=== PATIENT | female | born 1925 ===

== ENCOUNTER → 2016-06-02 | Outpatient (CLI) | payer OTHER, MEDICAID | LOC: BHFA 08:30 | PROVIDERS: ATTEND Internal Medicine Cardiovascular Disease | DX: R00.2 Palpitations (principal) ==

== ENCOUNTER 2016-09-07 15:55 | Observation (INO) | payer OTHER, MEDICAID ==
--- NOTE | 2016-09-07 16:28 | EDPHY ---
H & P Time Seen by Provider: 09/07/16 16:13 HPI/ROS: CHIEF COMPLAINT: Head injury, scalp laceration, right ankle injury HISTORY OF PRESENT ILLNESS: 89-year-old female presents to the emergency department by private vehicle with her daughter after she had a mechanical fall at home just prior to arrival. Patient states that she was getting up off the couch and somehow twisted her right ankle and then fell and hit the back of her head on the coffee table. She did not lose consciousness. She denies a headache. Denies neck or back pain. Denies chest pain or difficulty breathing. Denies paresthesias in upper or lower extremities. She has some mild pain in her right ankle. Denies pain in her right foot, right knee or hip. Denies symptoms in the left lower extremity or in her upper extremities bilaterally. She believes her tetanus shot is current. REVIEW OF SYSTEMS: Constitutional: No fever, no chills. Eyes: No double or blurry vision. ENT: No sore throat. Respiratory: No cough, no shortness of breath. Cardiac: No chest pain. Gastrointestinal: No abdominal pain, vomiting or diarrhea. Genitourinary: No dysuria. Musculoskeletal: No neck or back pain. Skin: Scalp abrasion. No rashes. Neurological: No headache. Past Medical/Surgical History: Irregular heartbeat, pacemaker, appendectomy, cholecystectomy Social History: and lives in [place]. She is originally from the [facility]. Smoking Status: Former smoker Physical Exam: General Appearance: Alert, no distress. Daughter at bedside. She is mentating normally and answering questions appropriately. Eyes: Pupils equal and round. Extraocular motions are all intact. ENT: Mouth: Mucous membranes moist. No dental injury or malocclusion. Respiratory: No wheezing, rhonchi, or rales, lungs are clear to auscultation. Cardiovascular: Regular rate and rhythm. Gastrointestinal: Abdomen is soft and nontender, no masses, no rebound or guarding, bowel sounds normal. Neurological: Alert and oriented x 3, cranial nerves II through XII grossly intact Skin: Right posterior scalp hematoma just above the mastoid bone on the right side. No palpable crepitus. Superficial abrasion noted without laceration. No active bleeding noted. Warm and dry, no rashes. Musculoskeletal: Nontender to palpate along the cervical, thoracic or lumbar spine. Neck is supple. Extremities: Full range of motion and no peripheral edema. Swelling noted to the lateral aspect of the right ankle overlying lateral malleolus. Minimally tender to palpate over the distal aspect of the fibula and over lateral malleolus. No palpable crepitus or other bony abnormality. Full dorsi and plantar flexion with a right ankle with minimal pain. Full range of motion of her right ankle. Full range of motion of the left lower extremity and the upper extremities bilaterally. Her gait is not tested. Psychiatric: Patient is oriented X 3, there is no agitation. Constitutional: Initial Vital Signs Temperature (C) 36.7 C 09/07/16 16:07 Heart Rate 79 09/07/16 16:07 Respiratory Rate 18 09/07/16 16:07 Blood Pressure 131/79 H 09/07/16 16:07 O2 Sat (%) 95 09/07/16 16:07 O2 Delivery Mode Room Air Allergies/Adverse Reactions: No Known Allergies Allergy (Verified 09/07/16 16:03) Home Medications: Medication Instructions Recorded Apixaban [Eliquis] 2.5 mg PO BID 09/07/16 Diltiazem HCl [Diltiazem 24Hr Cd] 180 mg PO HS 09/07/16 Ferrous Sulfate [Ferrous Sulf 325 325 mg PO DAILY 09/07/16 MG (*)] Herbals/Supplements -Info Only 1 ea PO DAILY 09/07/16 Metoprolol Succinate Xr [Toprol Xl 25 mg PO DAILY 09/07/16 25 mg (*)] Multivitamins [Multivitamin (*)] 1 each PO DAILY 09/07/16 [place]-3 Fatty Acids [Fish Oil 1000 1,000 mg PO DAILY 09/07/16 mg (*)] Simvastatin 20 mg PO HS 09/07/16 Vitamin B Complex [B Complex] 1 each PO DAILY 09/07/16 metFORMIN HCL [Glucophage 500 mg 1,000 mg PO BID 09/07/16 (*)] Medical Decision Making - Diagnostics Imaging Results: Imaging Impressions Ankle X-Ray 09/07/16 16:24 Impression: Negative. No acute fracture. Head CT 09/07/16 16:24 Impression: 1. Small subarachnoid hemorrhage along the right cerebellar hemisphere and left paramedian occipital lobe. 2. No subdural hematoma or shift. 3. Generalized atrophy and mild white matter disease within normal limit for age. 4. Small right parietal scalp hematoma. No acute fracture. Findings discussed with Emergency Department physician, Hortencia Durán PA-C, on September 07, 2016 at 1707 hours. ED Course/Re-evaluation: 89-year-old female presents to the emergency department by private vehicle after mechanical fall hitting her head. This patient takes anticoagulant medication and has a pacemaker. I recommended CT imaging of the brain to evaluate for intracranial bleeding. X-rays of the right ankle are pending. Patient ambulated to the bathroom without any difficulty. CT imaging of the brain reveals small volume subarachnoid hemorrhage in the left parietal area and right cerebellum. No reported subdural bleed or hematoma. No shift. Case was discussed with Dr. Downs who was on-call for Neurosurgery who will admit this patient to the step-down unit. The patient was also seen examined by Dr. Izaiah Vitale. No suturable laceration. She has scalp hematoma and abrasion. X-rays of the right ankle reveal no fractures. Differential Diagnosis: Head injury including but not limited to concussion, skull fracture, intraparenchymal contusion, subarachnoid, subdural and epidural hematoma. - Data Points Medications Given: Discontinued Medications Diphtheria/Tetanus/Acell Pertussis (Boostrix) 0.5 ml IM .ONCE ONE Stop: 09/07/16 17:20 Last Admin: 09/07/16 17:29 Dose: 0.5 ml Departure - Departure Disposition: [facility] Inpatient Acute Clinical Impression: Subarachnoid hemorrhage Scalp abrasion Qualifiers: Encounter type: initial encounter Qualified Code(s): S00.01XA - Abrasion of scalp, initial encounter Right ankle sprain Qualifiers: Encounter type: initial encounter Involved ligament of ankle: unspecified ligament Qualified Code(s): S93.401A - Sprain of unspecified ligament of right ankle, initial encounter Condition: Good
[2016-09-07] MEDS ORDERED: TDAP ADULT 0.5 ML INJ (BOOSTRIX) IM ONE (17:19)
[2016-09-07 17:36] LABS: % IMMATURE GRANULYOCYTES 0.3 % (0.0-1.1); ABSOLUTE IMMATURE GRANULOCYTES 0.02 10^3/uL (0.00-0.10); ADD DIFF? NO; ADD MORPH? NO; ADD SCAN? NO; ATYPICAL LYMPHOCYTE FLAG 0 (0-99); FRAGMENT RBC FLAG 20 (0-99); HEMATOCRIT 38.6 % (38.0-47.0); HEMOGLOBIN 12.1 g/dL (12.6-16.3); LEFT SHIFT FLG 0 (0-99); LIPEMIA HEMOLYSIS FLAG 80 (0-99); MEAN CELL HEMOGLOBIN 22.5 pg (27.9-34.1); MEAN CELL HEMOGLOBIN CONCENTR. 31.3 g/dL (32.4-36.7); MEAN CELL VOLUME 71.7 fL (81.5-99.8); PLATELET CLUMPS FLAG 0 (0-99); PLATELET COUNT 197 10^3/uL (150-400); RED BLOOD CELL COUNT 5.38 10^6/uL (4.18-5.33); RED CELL DISTRIBUTION WIDTH 15.3 % (11.5-15.2)
[2016-09-07 17:44] LABS: APTT 38.1 SEC (23.0-38.0); INR 1.03 (0.83-1.16); PROTIME(PATIENT) 13.4 SEC (12.0-15.0)
[2016-09-07 17:51] LABS: ANION GAP 11 mEq/L (8-16); CALCIUM 9.6 mg/dL (8.5-10.4); CARBON DIOXIDE 26 mEq/l (22-31); CHLORIDE 102 mEq/L (97-110); CREATININE 0.7 mg/dL (0.6-1.0); GLOMERULAR FILTRATION RATE > 60; GLUCOSE 117 mg/dL (70-100); SODIUM 139 mEq/L (134-144)
[2016-09-07] MEDS ORDERED: hydrALAZINE 20 MG/ML VIAL IVP PRN (17:56)
[2016-09-07] MEDS ORDERED: NS 1,000 ML IV SCH (18:00)
[2016-09-07] MEDS ORDERED: ACETAMINOPHEN 325 MG TAB PO PRN (18:00)
[2016-09-07] MEDS ORDERED: ONDANSETRON 4 MG/2 ML VIAL IVP PRN (18:00)
[2016-09-07] MEDS ORDERED: HYDROCODONE/APAP 5/325 TAB PO PRN (18:00)
[2016-09-07] MEDS: metFORMIN HCL 500 MG TAB PO SCH (20:17)
[2016-09-07] MEDS ORDERED: DILTIAZEM CD 180 MG CAP PO SCH (21:00)
[2016-09-07] MEDS ORDERED: ATORVASTATIN CALCIUM 10 MG TAB PO SCH (21:00)
--- NOTE | 2016-09-07 23:15 | GHP ---
[f rep st] HISTORY AND PHYSICAL DATE OF ADMISSION: 09/07/2016 REASON FOR EVALUATION: Traumatic subarachnoid hemorrhage after a mechanical ground-level fall. HISTORY OF PRESENT ILLNESS: This is an otherwise very healthy 89-year-old woman , who is on Eliquis for cardiac arrhythmia, who presents to the Emergency Department at [facility], by her daughter's vehicle. Patient states she had a mechanical fall while she was getting off the couch. She twisted her right ankle and fell, striking the back of her head on the coffee table. There was no associated loss of consciousness. She currently denies any headaches, but does have some point tenderness on the posterior aspect of her scalp where she has an associated scalp laceration. Denies any cervical, thoracic or lumbar spine pain. No tingling, numbness, pain or weakness of the upper or lower extremities. No difficulty with shortness of breath or chest pain. Mild aching in the right ankle where she feels she twisted her ankle. REVIEW OF SYSTEMS: Complete 10-point review of systems from the patient's intake form were reviewed myself, significant only for those above in the HPI. PAST MEDICAL HISTORY: 1. Irregular heartbeat. 2. Diabetes. PAST SURGICAL HISTORY: 1. Pacemaker. 2. Appendectomy. 3. Cholecystectomy. SOCIAL HISTORY: The patient is , and lives in [place]. She is originally from the [facility]. She is accompanied by her daughter in the emergency department this evening. She is a former smoker. No other illicit drug use. FAMILY HISTORY: Negative for any brain tumors. ALLERGIES: No known drug allergies. MEDICATIONS: 1. Calcium carbonate with vitamin D 500 mg p.o. daily. 2. Herbal supplements p.o. daily. 3. Multivitamin p.o. daily. 4. [place]-3 fatty acids 1000 mg p.o. daily. 5. Zocor 40 mg p.o. daily. 6. Vitamin B complex p.o. daily. 7. [place] 1 tab p.o. q.4 hours p.r.n. for pain. 8. Diltiazem CD 180 mg p.o. daily. 9. Eliquis 5 mg p.o. twice daily. 10. Metoprolol-XL 200 mg p.o. daily. PHYSICAL EXAMINATION: VITAL SIGNS: Temperature is 36.7, heart rate 79, respiratory rate is 18, blood pressure is 131/79. She is saturating at 95% currently on room air. GENERAL: The patient is sitting in the bed, is in no acute distress. She is quite pleasant and cooperative with the examination, and her daughter is at the bedside. HEENT: She has a small laceration on the right posterior aspect of her scalp over which there is currently a small piece of gauze. The remainder of the scalp is atraumatic and normocephalic. Pupils are approximately 4 mm bilaterally, and equally reactive to both direct and consensual examination. Extraocular movements are intact. Face is symmetric. NEUROLOGIC: Cranial nerves 2-12 appear to be intact. Face is symmetric. Tongue protrudes midline. Uvula and palate elevate symmetrically. Facial sensation is intact to light touch on the face bilaterally. Pupils are equal and round, and reactive to light bilaterally. Extraocular movements are intact. She has intact hearing to light conversation. Shoulder shrug is symmetric. Motor exam shows 5/5 strength, with bilateral direct mail clerk strength biceps, triceps, hip flexion, plantar dorsiflexion, extensor hallucis longus on the left. Mild weakness in the right ankle, with plantar dorsiflexion, which appears to be pain limited. Sensory exam shows intact sensation to light touch throughout all major dermatomes of bilateral upper and lower extremities throughout. Reflexes: She has 1+ reflexes at the bilateral brachioradialis and patellae. Other: No Babinski, no clonus, and no Camacho's. SPINE: No tenderness to cervical palpation in the midline spine. She has full range of motion of the cervical spine. PSYCHIATRIC: The patient is oriented x3. MEDICAL DECISION MAKING: Patient underwent a head CT without contrast, reviewed by myself on the [facility] PACS system. There is small subarachnoid hemorrhage along the right cerebellar hemisphere and left paramedian occipital lobe, with no subdural hematoma or shift. There is generalized atrophy, with mild white matter disease, and normal limits for age. Small right parietal scalp hematoma, with no evidence of any fractures, midline shift or mass effect. LABS: White count 7.37, hematocrit 38.6, platelets 197. INR 1.03, PTT 38.1. Sodium 139, potassium 4.0, BUN of 19, creatinine of 0.7. ASSESSMENT AND PLAN: The patient is an 89-year-old otherwise fairly healthy woman on Eliquis for atrial fibrillation, who presents after a mechanical ground -level fall at her home. She is neurologically intact, with a small scalp laceration, and a very tiny subarachnoid hemorrhage. At this time, the patient is neurologically intact, and doing quite well in the emergency department in no acute distress. I discussed with the patient and her daughter the need for possible reversal versus continuing with the Kimquis, and given her high risk for possible stroke or cardiac event, we are going to go ahead and plan on leaving the Kimquis on board, and not reversing her with the very small traumatic subarachnoid hemorrhage, and a reassuring clinical examination. We will plan to repeat her head CT within 2 hours to ensure that there are no changes intracranially, and admit her to the step-down unit of the intensive care unit with q.2 hours neuro checks. We will go ahead and let her eat. No plans for antiepileptics at this time, given her age. She will likely be discharged in the morning if she continues to do well. I discussed this with the patient and her daughter, who are both in agreement with this plan. I did explain to her that there is a very small chance that she would require surgery, though on likely. Please note, this patient was seen in the Emergency Department at [facility]. /[id number]/MODL MTDD
[2016-09-08] MEDS: metFORMIN HCL 500 MG TAB PO SCH (08:12)
--- NOTE | 2016-09-08 08:33 | NEUSURGPN ---
Assessment/Plan: A: 89 yo F s/p fall with SAH Plan: PT/OT/CONSIGNEE to see Repeat CT head was stable Diet as tolerated Pain management Plan for DC later today once cleared by therapies Call NS with any issues D/w Dr Downs Subjective: Pt resting in bed eating breakfast, denies headache Objective: AAOx3 NAD VSS No droop Motor 5/5 BUE/BLE +LT Urinary Catheter in Place: No - Physician Discussed Patient with : [facility] Physical Exam - Vitals, I&O, Labs I and O 09/07/16 09/08/16 09/09/16 05:59 05:59 05:59 Intake Total 475 Balance 475 Weight 56 kg Intake: Oral (ml) 50 IV Infused (ml) 425 Ns 1,000 ml @ 70 mls/hr 425 IV CONT JUNE Rx#: [id number] Other: Number of Voids Toilet 4 Number of Stools Toilet 0 Vital Signs Temp Pulse Resp BP Pulse Ox 36.5 C 81 19 137/53 H 96 09/08/16 07:31 09/08/16 08:12 09/08/16 07:31 09/08/16 08:12 09/08/16 07:31 Laboratory Results 09/07/16 17:25 09/07/16 17:25 ICD10 Worksheet Patient Problems: Problems Problem Status Onset Right ankle sprain Acute Scalp abrasion Acute Subarachnoid hemorrhage Acute Near syncope Acute
[2016-09-08] MEDS ORDERED: FERROUS SULFATE 325 MG TAB PO SCH (09:00)
[2016-09-08] MEDS ORDERED: METOPROLOL SUCCINATE XR 25 MG TAB PO SCH (09:00)
[2016-09-08 11:48] VITALS: BP 111/58; PULSE 76; RESP 16; TEMP 98.4; O2SAT 95
[2016-09-08] MEDS ORDERED: APIXABAN 2.5 MG TAB PO SCH (12:00)
== END 2016-09-08 12:53 | disposition home or self-care (01) ==
LOC: INTOOBSV 17:56 → OBSVTOIN 17:56 → F2N 18:28
PROVIDERS: ADMIT Neurological Surgery; ATTEND Neurological Surgery
DX: S06.6X0A Traumatic subarachnoid hemorrhage without loss of consciousness, initial encounter (principal); S00.01XA Abrasion of scalp, initial encounter; S93.401A Sprain of unspecified ligament of right ankle, initial encounter; W01.190A Fall on same level from slipping, tripping and stumbling with subsequent striking against furniture, initial encounter; Y92.008 Other place in unspecified non-institutional (private) residence as the place of occurrence of the external cause; Z79.01 Long term (current) use of anticoagulants; Z95.0 Presence of cardiac pacemaker; Z23 Encounter for immunization
CPT/HCPCS: 70450; 73610; 90471; 90715; 92523; 97162; 97165; 99285; G0378; G8978; G8979; G8980; G8987; G8988; G8989; G9165; G9166; G9167

== ENCOUNTER 2016-11-09 17:59 | Observation (INO) | payer OTHER, MEDICAID ==
--- NOTE | 2016-11-09 18:25 | CPEKG ---
Heart Rate: 132 RR Interval: 455 QRSD Interval: 80 QT Interval: 336 QTC Interval: 498 QRS [place]: 78 T Wave [place]: -40 EKG Severity - ABNORMAL ECG - EKG Impression: ATRIAL FIBRILLATION WITH RAPID V-RATE Electronically Signed By: Dean Velazquez 09-Nov-2016 20:17:02
--- NOTE | 2016-11-09 18:37 | EDPHY ---
H & P Stated Complaint: Rapid heart rate x several days Time Seen by Provider: 11/09/16 18:34 HPI/ROS: CHIEF COMPLAINT: Palpitations HISTORY OF PRESENT ILLNESS: The patient presents the ED with complaints of palpitations began 1 hour prior to arrival. The patient denies associated chest pain or shortness of breath. The patient does have a history of an arrhythmia, atrial fibrillation and bradycardia. She does have a pacemaker which was placed by Dr. Quan Tucker. The patient denies any history of exertional chest pain or shortness of breath. The patient denies any medication changes. The patient denies fever, cough or congestion. The patient denies asymmetric calf pain or swelling. She has no complaints of pedal edema. REVIEW OF SYSTEMS: A comprehensive 10 point review of systems is otherwise negative aside from elements mentioned in the history of present illness. Source: Patient - Personal History Current Tetanus Diphtheria and Acellular Pertussis (TDAP): Yes - Medical/Surgical History Hx Asthma: No Hx Chronic Respiratory Disease: No Hx Diabetes: Yes Hx Cardiac Disease: Yes Hx Renal Disease: No Hx Cirrhosis: No Hx Alcoholism: No Hx HIV/AIDS: No Hx Splenectomy or Spleen Trauma: No Other PMH: APPY, MAYA, IRREGULAR HEARTBEAT, PACEMAKER. afib - Social History Smoking Status: Former smoker - Physical Exam Exam: General Appearance: Alert, no distress Eyes: Pupils equal and round no pallor or injection ENT, Mouth: Mucous membranes moist Respiratory: Tachycardic, irregular consistent with atrial fibrillation Cardiovascular: Regular rate and rhythm Gastrointestinal: Abdomen is soft and nontender, no masses, bowel sounds normal Neurological: A&O, normal motor function, normal sensory exam, normal cranial nerves Skin: Warm and dry, no rashes Musculoskeletal: Neck is supple nontender Extremities: symmetrical, full range of motion Constitutional: Initial Vital Signs Temperature (C) 36.7 C 11/09/16 18:05 Heart Rate 127 H 11/09/16 18:05 Respiratory Rate 18 11/09/16 18:05 Blood Pressure 101/80 11/09/16 18:05 O2 Sat (%) 97 11/09/16 18:05 O2 Delivery Mode Room Air Allergies/Adverse Reactions: No Known Allergies Allergy (Verified 11/09/16 18:09) Home Medications: Medication Instructions Recorded Apixaban [Eliquis] 2.5 mg PO BID 09/07/16 Diltiazem HCl [Diltiazem 24Hr Cd] 180 mg PO HS 09/07/16 Ferrous Sulfate [Ferrous Sulf 325 325 mg PO DAILY 09/07/16 MG (*)] Herbals/Supplements -Info Only 1 ea PO DAILY 09/07/16 Metoprolol Succinate Xr [Toprol Xl 25 mg PO DAILY 09/07/16 25 mg (*)] Multivitamins [Multivitamin (*)] 1 each PO DAILY 09/07/16 [place]-3 Fatty Acids [Fish Oil 1000 1,000 mg PO DAILY 09/07/16 mg (*)] Simvastatin 20 mg PO HS 09/07/16 Vitamin B Complex [B Complex] 1 each PO DAILY 09/07/16 metFORMIN HCL [Glucophage 500 mg 1,000 mg PO BID 09/07/16 (*)] Medical Decision Making - Diagnostics EKG Interpretation: EKG: Complete interpretation has been separately recorded in the [facility] archive. Summary impression: Atrial fibrillation, rate 132, nonspecific ST T wave changes noted. The patient's EKG is unchanged from her prior EKG in 2014. ED Course/Re-evaluation: The patient presents to the ED with atrial fibrillation with rapid ventricular response. The patient was placed on a manager diversity. She had an IV established. The patient received 15 mg bolus of diltiazem. This resulted in some rate control with a heart rate down into the 100. The patient continues to be in atrial fibrillation was started on a diltiazem drip. The patient's EKG demonstrates no evidence of acute ischemia. Her initial troponin is normal. The patient has no respiratory complaints. The patient will require admission to the hospital for further evaluation and treatment with additional IV therapy for rate control. The patient was re-evaluated by myself at 8:15 p.m.. She is resting comfortably in the room and in no acute distress. Consultation was made with Dr. Aguilar from the hospitalist service who will admit the patient. Differential Diagnosis: Differential diagnosis considered includes atrial fibrillation, ventricular tachycardia, myocardial infarction, atrial flutter, metabolic abnormality, dehydration - Data Points Laboratory Results: Laboratory Results 11/09/16 18:30 11/09/16 18:30 11/09/16 11/09/16 18:30 18:30 WBC 6.22 10^3/uL 10^3/uL (3.80-9.50) RBC 5.18 10^6/uL 10^6/uL (4.18-5.33) Hgb 11.8 g/dL L g/dL (12.6-16.3) Hct 36.8 % L % (38.0-47.0) MCV 71.0 fL L fL (81.5-99.8) MCH 22.8 pg L pg (27.9-34.1) MCHC 32.1 g/dL L g/dL (32.4-36.7) RDW 15.4 % H % (11.5-15.2) Plt Count 230 10^3/uL 10^3/uL (150-400) MPV 12.1 fL H fL (8.7-11.7) Neut % (Auto) 57.7 % % (39.3-74.2) Lymph % (Auto) 29.7 % % (15.0-45.0) [place] % (Auto) 9.2 % % (4.5-13.0) Eos % (Auto) 2.1 % % (0.6-7.6) Baso % (Auto) 1.0 % % (0.3-1.7) Nucleat RBC Rel Count 0.0 % % (0.0-0.2) Absolute Neuts (auto) 3.59 10^3/uL 10^3/uL (1.70-6.50) Absolute Lymphs (auto) 1.85 10^3/uL 10^3/uL (1.00-3.00) Absolute Monos (auto) 0.57 10^3/uL 10^3/uL (0.30-0.80) Absolute Eos (auto) 0.13 10^3/uL 10^3/uL (0.03-0.40) Absolute Basos (auto) 0.06 10^3/uL 10^3/uL (0.02-0.10) Absolute Nucleated RBC 0.00 10^3/uL 10^3/uL (0-0.01) Immature Gran % 0.3 % % (0.0-1.1) Immature Gran # 0.02 10^3/uL 10^3/uL (0.00-0.10) Sodium 137 mEq/L mEq/L (134-144) Potassium 4.3 mEq/L mEq/L (3.5-5.2) Chloride 104 mEq/L mEq/L (97-110) Carbon Dioxide 20 mEq/l L mEq/l (22-31) Anion Gap 13 mEq/L mEq/L (8-16) BUN 21 mg/dL mg/dL (7-23) Creatinine 0.7 mg/dL mg/dL (0.6-1.0) Estimated GFR > 60 Glucose 119 mg/dL H mg/dL (70-100) Calcium 9.9 mg/dL mg/dL (8.5-10.4) Troponin I < 0.012 ng/mL ng/mL (0-0.034) Medications Given: Discontinued Medications Diltiazem HCl (Cardizem 25 Mg/5 Ml Vial) 15 mg IVP EDNOW ONE Stop: 11/09/16 18:43 Last Admin: 11/09/16 19:10 Dose: 15 mg Departure - Departure Disposition: [facility] Inpatient Acute Clinical Impression: Atrial fibrillation with RVR Condition: Fair Referrals: UNKNOWN,DOCTOR [Other] - As per Instructions
[2016-11-09] MEDS ORDERED: DILTIAZEM 25 MG/5 ML VIAL IVP ONE (18:42)
[2016-11-09 18:49] LABS: % IMMATURE GRANULYOCYTES 0.3 % (0.0-1.1); ABSOLUTE IMMATURE GRANULOCYTES 0.02 10^3/uL (0.00-0.10); ADD DIFF? NO; ADD MORPH? NO; ADD SCAN? NO; ATYPICAL LYMPHOCYTE FLAG 20 (0-99); FRAGMENT RBC FLAG 20 (0-99); HEMATOCRIT 36.8 % (38.0-47.0); HEMOGLOBIN 11.8 g/dL (12.6-16.3); LEFT SHIFT FLG 0 (0-99); LIPEMIA HEMOLYSIS FLAG 80 (0-99); MEAN CELL HEMOGLOBIN 22.8 pg (27.9-34.1); MEAN CELL HEMOGLOBIN CONCENTR. 32.1 g/dL (32.4-36.7); MEAN PLATELET VOLUME 12.1 fL (8.7-11.7); PLATELET CLUMPS FLAG 10 (0-99); PLATELET COUNT 230 10^3/uL (150-400); RED BLOOD CELL COUNT 5.18 10^6/uL (4.18-5.33); RED CELL DISTRIBUTION WIDTH 15.4 % (11.5-15.2)
[2016-11-09 19:05] LABS: ANION GAP 13 mEq/L (8-16); CALCIUM 9.9 mg/dL (8.5-10.4); CARBON DIOXIDE 20 mEq/l (22-31); CHLORIDE 104 mEq/L (97-110); CREATININE 0.7 mg/dL (0.6-1.0); GLOMERULAR FILTRATION RATE > 60; GLUCOSE 119 mg/dL (70-100); POTASSIUM 4.3 mEq/L (3.5-5.2); SODIUM 137 mEq/L (134-144)
[2016-11-09 19:15] LABS: TROPONIN I < 0.012 ng/mL (0-0.034)
[2016-11-09] MEDS ORDERED: DILTIAZEM 125 MG in D5W 125 ML IV SCH ×2 (20:00→22:45)
[2016-11-09] MEDS ORDERED: DILTIAZEM 125 MG in D5W 125 ML IV ONE (20:30)
[2016-11-09] MEDS ORDERED: ONDANSETRON 4 MG/2 ML VIAL IVP PRN (22:36)
[2016-11-09] MEDS ORDERED: ACETAMINOPHEN 325 MG TAB PO PRN (22:36)
[2016-11-09] MEDS ORDERED: NS 1,000 ML IV SCH (22:45)
--- NOTE | 2016-11-10 00:59 | GHP ---
[f rep st] HISTORY AND PHYSICAL DATE OF ADMISSION: 11/09/2016 CHIEF COMPLAINT: Palpitations. HISTORY: The patient is an 89-year-old female with a known history of AFib/flutter, who presents wi th palpitations for 1 hour prior to admission. She denies any chest pain or shortness of breath. P alpitations are currently relieved. She is, otherwise, feeling quite well. She does get intermitte nt palpitations in the past, although never to the degree of severity she felt today. There has bee n no lower extremity edema. There have been no recent illnesses. PAST MEDICAL HISTORY: 1. Atrial flutter. 2. Sick sinus syndrome, status post pacemaker. Her pipe changer is Dr. Tucker. 3. Diabetes. PAST SURGICAL HISTORY: Appendectomy, cholecystectomy. MEDICATIONS: Please see computer record for full detailed list. ALLERGIES: No known drug allergies. SOCIAL HISTORY: No smoking. No alcohol. She lives alone. She has 4 children. They are in [place], [place], and one locally in [place]. REVIEW OF SYSTEMS: Complete review of systems obtained. Review of systems is negative regarding co nstitutional, HEENT, GI, pulmonary, cardiovascular, , hematology, skin, musculoskeletal, endocrine , psych, except for positives and negatives as noted in HPI. FAMILY HISTORY: Reviewed and noncontributory to presenting complaint. PHYSICAL EXAMINATION: GENERAL: Well-developed, well-nourished female, in no acute distress. VITAL SIGNS: Temperature is 36.4, pulse currently 109 on a diltiazem drip, blood pressure 117/74, satura ting 94% on room air. EYES: Normal conjunctivae. Pupils are equal, round, reactive to light. ENT : Normal ears and nose. Hearing intact. Normal lips and teeth. Oropharynx moist. NECK: Trachea midline. No thyromegaly. CHEST: Normal respiratory effort. LUNGS: Clear to auscultation bilate rally. CARDIOVASCULAR: Irregular, irregular. No murmur. No lower extremity edema. ABDOMEN: Sof t. Nontender. No hepatosplenomegaly. SKIN: Warm, dry, intact. No rash. MUSCULOSKELETAL: No cy anosis or clubbing. Strength 5/5 upper and lower extremities. NEUROLOGIC: Cranial nerves intact. Normal sensation to light touch. PSYCH: Alert and oriented x3. Normal mood and affect. Normal j udgment. Normal insight. Normal memory. LABORATORY DATA: White count 6.22, hematocrit 36.8, platelets 230. Sodium 137, potassium 4.3, chlo ride 104, bicarb 20, BUN 21, creatinine 0.7, glucose 119. Troponins negative. EKG, viewed by lily yuan personal interpretation is atrial fibrillation with rapid ventricular response. No ischemic ST ch anges. Chest x-ray is negative. ASSESSMENT AND PLAN: 1. Rapid atrial fibrillation. We will continue IV diltiazem drip. Will up titrate her oral metopr olol and continue her oral diltiazem, see whether we may get better rate control. Her blood pressur e is on the lowish side, which may limit further up titration. Could consider digoxin or amiodarone versus cardioversion if her atrial fibrillation persists with a rapid uncontrolled rate. Will cont inue Eliquis. 2. Sick sinus syndrome, status post pacemaker. Stable. 3. Diabetes type 2. Continue metformin. CODE STATUS: She requests DNR. ADMISSION STATUS: Will admit to observation as she might go home tomorrow depending on AFib clinica l course. DEEP VEIN THROMBOSIS PROPHYLAXIS: She is chronically on Eliquis, which will be continued. /[id number]/MODL
[2016-11-10 04:00] LABS: % IMMATURE GRANULYOCYTES 0.2 % (0.0-1.1); ABSOLUTE IMMATURE GRANULOCYTES 0.01 10^3/uL (0.00-0.10); ADD DIFF? NO; ADD MORPH? NO; ADD SCAN? NO; ATYPICAL LYMPHOCYTE FLAG 10 (0-99); FRAGMENT RBC FLAG 20 (0-99); HEMATOCRIT 37.4 % (38.0-47.0); HEMOGLOBIN 11.7 g/dL (12.6-16.3); LEFT SHIFT FLG 0 (0-99); LIPEMIA HEMOLYSIS FLAG 80 (0-99); MEAN CELL HEMOGLOBIN 22.6 pg (27.9-34.1); MEAN CELL HEMOGLOBIN CONCENTR. 31.3 g/dL (32.4-36.7); MEAN CELL VOLUME 72.2 fL (81.5-99.8); MEAN PLATELET VOLUME 11.2 fL (8.7-11.7); PLATELET CLUMPS FLAG 0 (0-99); PLATELET COUNT 206 10^3/uL (150-400); RED BLOOD CELL COUNT 5.18 10^6/uL (4.18-5.33); RED CELL DISTRIBUTION WIDTH 15.3 % (11.5-15.2)
[2016-11-10 04:18] LABS: ANION GAP 11 mEq/L (8-16); CALCIUM 9.5 mg/dL (8.5-10.4); CARBON DIOXIDE 23 mEq/l (22-31); CHLORIDE 105 mEq/L (97-110); CREATININE 0.7 mg/dL (0.6-1.0); GLOMERULAR FILTRATION RATE > 60; GLUCOSE 117 mg/dL (70-100); POTASSIUM 3.9 mEq/L (3.5-5.2); SODIUM 139 mEq/L (134-144)
[2016-11-10 04:27] LABS: TROPONIN I < 0.012 ng/mL (0-0.034)
[2016-11-10] MEDS ORDERED: metFORMIN HCL 500 MG TAB PO SCH (08:00)
[2016-11-10] MEDS ORDERED: DILTIAZEM CD 180 MG CAP PO SCH (09:00)
[2016-11-10] MEDS ORDERED: APIXABAN 2.5 MG TAB PO SCH (09:00)
[2016-11-10] MEDS ORDERED: METOPROLOL SUCCINATE XR 50 MG TAB PO SCH (09:00)
[2016-11-10] MEDS ORDERED: METOPROLOL SUCCINATE XR 25 MG TAB PO SCH (09:00)
[2016-11-10] MEDS ORDERED: FERROUS SULFATE 325 MG TAB PO SCH (09:00)
[2016-11-10 12:19] VITALS: BP 104/56; PULSE 73; RESP 14; TEMP 98.6; O2SAT 97
--- NOTE | 2016-11-10 15:14 | HOSPPROG ---
Hospitalist Progress Note Assessment/Plan: 89 yo F w AF admitted w AF and rvr converted of dilt gtt, stable in sinus on po meds home today see dc summary Subjective: converted. anxious for dc Objective: Vital Signs Temp Pulse Resp BP Pulse Ox 37.0 C 73 14 104/56 L 97 11/10/16 12:00 11/10/16 12:00 11/10/16 12:00 11/10/16 12:00 11/10/16 12:00 Laboratory Results 11/10/16 03:42 11/10/16 03:42 11/09/16 11/10/16 11/11/16 05:59 05:59 05:59 Intake Total 490 Balance 490 - Physical Exam Constitutional: no apparent distress, appears nourished Eyes: PERRL, anicteric sclera Ears, Nose, Mouth, Throat: moist mucous membranes, hearing normal Cardiovascular: regular rate and rhythym, no murmur, rub, or gallop Respiratory: no respiratory distress, no rales or rhonchi Gastrointestinal: normoactive bowel sounds, soft, non-tender abdomen Genitourinary: no bladder fullness, No koehler in urethra Skin: warm, normal color Musculoskeletal: full muscle strength Neurologic: AAOx3 Psychiatric: interacting appropriately, not anxious ICD10 Worksheet Patient Problems: Problems Problem Status Onset Atrial fibrillation with RVR Acute Near syncope Acute Right ankle sprain Acute Scalp abrasion Acute Subarachnoid hemorrhage Acute
--- NOTE | 2016-11-10 16:24 | GDS ---
[f rep st] DISCHARGE SUMMARY DISCHARGE DIAGNOSES: 1. Atrial fibrillation with rapid ventricular response, now in sinus. 2. History of atrial flutter. 3. Sick sinus syndrome status post pacer. HOSPITAL COURSE: Please see admission history and physical by Dr. Luna Teran. The patient pres ented with palpitations. On presentation she was in atrial fibrillation at the rate of 130. She wa s placed on a diltiazem drip. She had no evidence of infection or other hemodynamic compromise. Tr oponins were negative. TSH was normal. She converted on the diltiazem drip, was transitioned to or al medicines and is anxious for discharge, and is therefore discharged home on unchanged medication regimen. /[id number]/MODL
[2016-11-10] MEDS ORDERED: ATORVASTATIN CALCIUM 10 MG TAB PO SCH (21:00)
== END 2016-11-10 16:22 | disposition home or self-care (01) ==
LOC: F2W 20:33
PROVIDERS: ADMIT Internal Medicine; ATTEND Internal Medicine
PROC: 3E033RZ Introduction of Antiarrhythmic into Peripheral Vein, Percutaneous Approach (ICD-10-PCS; principal; 2016-11-09)
DX: I48.91 Unspecified atrial fibrillation (principal); R00.2 Palpitations; I49.5 Sick sinus syndrome; Z95.5 Presence of coronary angioplasty implant and graft; E11.9 Type 2 diabetes mellitus without complications; Z79.84 Long term (current) use of oral hypoglycemic drugs
CPT/HCPCS: 71010; 93005; 96374; 96375; 97161; 97165; 99285; G0378; G8978; G8979; G8980; G8987; G8988; G8989

== ENCOUNTER 2016-12-07 14:33 | Emergency (ER) | payer OTHER, MEDICAID ==
[2016-12-07 14:41] VITALS: PULSE 60; RESP 16
--- NOTE | 2016-12-07 14:59 | CPEKG ---
Heart Rate: 60 RR Interval: 1000 P-R Interval: 212 QRSD Interval: 88 QT Interval: 484 QTC Interval: 484 QRS [place]: 72 T Wave [place]: 112 EKG Severity - ABNORMAL ECG - EKG Impression: ATRIAL-PACED RHYTHM EKG Impression: NONSPECIFIC T ABNORMALITIES, ANT-LAT LEADS Electronically Signed By: Dean Velazquez 07-Dec-2016 23:05:23
--- NOTE | 2016-12-07 15:14 | EDPHY ---
H & P Stated Complaint: tired all the time w/ new amio prescription with hypotension Time Seen by Provider: 12/07/16 15:06 HPI/ROS: CHIEF COMPLAINT: Fatigue HISTORY OF PRESENT ILLNESS: The patient presents to the ED with complaints of worsening fatigue and intermittent palpitations. The patient has a history of atrial fibrillation status post pacemaker insertion currently on metoprolol, amiodarone and diltiazem. The patient reportedly began to feel poor earlier in the week. She attributed the symptoms to begin amiodarone last Monday. It was temporarily discontinued on Monday of this week and then resumed 200 mg a day on Monday. The patient denies any complaints of acute chest pain or shortness of breath. The patient's daughter reports that her blood pressures have been running in the 90s to 1 100s over 40s to 50s. The patient has not had fever, vomiting or any additional acute medical complaints. She also denies complaints of dysuria. REVIEW OF SYSTEMS: A comprehensive 10 point review of systems is otherwise negative aside from elements mentioned in the history of present illness. Source: Patient Exam Limitations: No limitations - Personal History Current Tetanus/Diphtheria Vaccine: Unsure Current Tetanus Diphtheria and Acellular Pertussis (TDAP): Unsure - Medical/Surgical History Hx Asthma: No Hx Chronic Respiratory Disease: No Hx Diabetes: Yes Hx Cardiac Disease: Yes Hx Renal Disease: No Hx Cirrhosis: No Hx Alcoholism: No Hx HIV/AIDS: No Hx Splenectomy or Spleen Trauma: No Other PMH: APPY, MAYA, IRREGULAR HEARTBEAT, PACEMAKER. afib - Social History Smoking Status: Former smoker - Physical Exam Exam: General Appearance: Elderly female, no acute distress Eyes: Pupils equal and round no pallor or injection ENT, Mouth: Mucous membranes moist Respiratory: There are no retractions, lungs are clear to auscultation Cardiovascular: Regular rate and rhythm Gastrointestinal: Abdomen is soft and nontender, no masses, bowel sounds normal Neurological: A&O, normal motor function, normal sensory exam, normal cranial nerves Skin: Warm and dry, no rashes Musculoskeletal: Neck is supple nontender Extremities: symmetrical, full range of motion Constitutional: Initial Vital Signs Temperature (C) 36.8 C 12/07/16 14:36 Heart Rate 60 12/07/16 14:36 Respiratory Rate 16 12/07/16 14:36 Blood Pressure 124/56 H 12/07/16 14:36 O2 Sat (%) 97 12/07/16 14:36 O2 Delivery Mode Room Air Allergies/Adverse Reactions: No Known Allergies Allergy (Verified 11/09/16 18:09) Home Medications: Medication Instructions Recorded Apixaban [Eliquis] 2.5 mg PO BID 09/07/16 Ferrous Sulfate [Ferrous Sulf 325 325 mg PO DAILY 09/07/16 MG (*)] Herbals/Supplements -Info Only 1 ea PO DAILY 09/07/16 Metoprolol Succinate Xr [Toprol Xl 25 mg PO DAILY 09/07/16 25 mg (*)] Multivitamins [Multivitamin (*)] 1 each PO DAILY 09/07/16 [place]-3 Fatty Acids [Fish Oil 1000 1,000 mg PO DAILY 09/07/16 mg (*)] Simvastatin 20 mg PO HS 09/07/16 Vitamin B Complex [B Complex] 1 each PO DAILY 09/07/16 metFORMIN HCL [Glucophage 500 mg 1,000 mg PO BID 09/07/16 (*)] Diltiazem HCl [Taztia Xt] 180 mg PO DAILY 11/09/16 Medical Decision Making - Diagnostics Imaging Results: CT head without contrast: Old hyperdensity noted unchanged from prior CT scan consistent with prior stroke. Images reviewed by myself and discussed with radiologist Dr. Marcelo Whitaker. ED Course/Re-evaluation: The patient presents to the ED with a chief complaint of fatigue. She is noted to have stable vital signs throughout her stay in the emergency department. The patient had an IV established. She received a L of normal saline. Her EKG demonstrates a paced rhythm. Her CBC, metabolic panel and urinalysis are within normal limits. The patient was examined several times over a 2 hour period. She remains neurologically intact. She is ambulatory with a steady gait. Her chief complaint is one of fatigue. At this point time I see no evidence of an obvious metabolic or cardiovascular issue. She does not appear dehydrated. There is no evidence of urinary tract infection. This point time I do feel the patient can manage her symptoms expectantly and slightly increase her fluid intake. She should return to the ED for markedly worsening symptoms or other concerns. Given the patient's neurologic complaints anticoagulant use. She was taken for CT scan of the head which demonstrated no evidence of an acute intracranial hemorrhage or other acute LOSS CONTROL CONSULTANT process. The patient was reexamined by myself at 5:30 p.m.. She continues to be neurologically intact. Differential Diagnosis: Differential diagnosis considered includes arrhythmia, anemia, metabolic abnormality, acute coronary syndrome, urinary tract infection, medication side effect - Data Points Laboratory Results: Laboratory Results 12/07/16 15:20 12/07/16 15:20 12/07/16 12/07/16 12/07/16 16:00 15:20 15:20 WBC 6.95 10^3/uL 10^3/uL (3.80-9.50) RBC 5.07 10^6/uL 10^6/uL (4.18-5.33) Hgb 11.6 g/dL L g/dL (12.6-16.3) Hct 36.3 % L % (38.0-47.0) MCV 71.6 fL L fL (81.5-99.8) MCH 22.9 pg L pg (27.9-34.1) MCHC 32.0 g/dL L g/dL (32.4-36.7) RDW 15.6 % H % (11.5-15.2) Plt Count 215 10^3/uL 10^3/uL (150-400) MPV 10.9 fL fL (8.7-11.7) Neut % (Auto) 59.6 % % (39.3-74.2) Lymph % (Auto) 28.2 % % (15.0-45.0) [place] % (Auto) 8.8 % % (4.5-13.0) Eos % (Auto) 2.0 % % (0.6-7.6) Baso % (Auto) 1.0 % % (0.3-1.7) Nucleat RBC Rel Count 0.0 % % (0.0-0.2) Absolute Neuts (auto) 4.14 10^3/uL 10^3/uL (1.70-6.50) Absolute Lymphs (auto) 1.96 10^3/uL 10^3/uL (1.00-3.00) Absolute Monos (auto) 0.61 10^3/uL 10^3/uL (0.30-0.80) Absolute Eos (auto) 0.14 10^3/uL 10^3/uL (0.03-0.40) Absolute Basos (auto) 0.07 10^3/uL 10^3/uL (0.02-0.10) Absolute Nucleated RBC 0.00 10^3/uL 10^3/uL (0-0.01) Immature Gran % 0.4 % % (0.0-1.1) Immature Gran # 0.03 10^3/uL 10^3/uL (0.00-0.10) Sodium 136 mEq/L mEq/L (134-144) Potassium 4.5 mEq/L mEq/L (3.5-5.2) Chloride 101 mEq/L mEq/L (97-110) Carbon Dioxide 21 mEq/l L mEq/l (22-31) Anion Gap 14 mEq/L mEq/L (8-16) BUN 17 mg/dL mg/dL (7-23) Creatinine 0.8 mg/dL mg/dL (0.6-1.0) Estimated GFR > 60 Glucose 129 mg/dL H mg/dL (70-100) Calcium 9.3 mg/dL mg/dL (8.5-10.4) Troponin I < 0.012 ng/mL ng/mL (0-0.034) Urine Color PALE YELLOW Urine Appearance CLEAR Urine pH 7.0 (5.0-7.5) Ur Specific [place] 1.002 (1.002-1.030) Urine Protein NEGATIVE (NEGATIVE) Urine Ketones NEGATIVE (NEGATIVE) Urine Blood NEGATIVE (NEGATIVE) Urine Nitrate NEGATIVE (NEGATIVE) Urine Bilirubin NEGATIVE (NEGATIVE) Urine Urobilinogen NEGATIVE EU EU (0.2-1.0) Ur Leukocyte Esterase NEGATIVE (NEGATIVE) Urine RBC NONE SEEN /hpf /hpf (0-3) Urine WBC 1-3 /hpf /hpf (0-3) Ur Epithelial Cells TRACE /lpf /lpf (NONE-1+) Urine Mucus TRACE /lpf /lpf (NONE-1+) Urine Glucose NEGATIVE (NEGATIVE) Departure - Departure Disposition: Home, Routine, Self-Care Clinical Impression: Generalized weakness Condition: Good Instructions: Weakness (ED) Additional Instructions: 1. All testing done in the emergency department today demonstrates no obvious explanation for your weakness. 2. Please follow up with your stone spreader operator as scheduled to discuss whether or not amiodarone should be adjusted. 3. Please return to the ED for severe pain, fever or other concerns. Referrals: Quan Tucker MD [Medical Doctor] - As per Instructions
[2016-12-07 15:27] LABS: % IMMATURE GRANULYOCYTES 0.4 % (0.0-1.1); ABSOLUTE IMMATURE GRANULOCYTES 0.03 10^3/uL (0.00-0.10); ADD DIFF? NO; ADD MORPH? NO; ADD SCAN? NO; ATYPICAL LYMPHOCYTE FLAG 10 (0-99); FRAGMENT RBC FLAG 20 (0-99); HEMATOCRIT 36.3 % (38.0-47.0); HEMOGLOBIN 11.6 g/dL (12.6-16.3); LEFT SHIFT FLG 0 (0-99); LIPEMIA HEMOLYSIS FLAG 80 (0-99); MEAN CELL HEMOGLOBIN 22.9 pg (27.9-34.1); MEAN CELL VOLUME 71.6 fL (81.5-99.8); MEAN PLATELET VOLUME 10.9 fL (8.7-11.7); PLATELET CLUMPS FLAG 10 (0-99); PLATELET COUNT 215 10^3/uL (150-400); RED BLOOD CELL COUNT 5.07 10^6/uL (4.18-5.33); RED CELL DISTRIBUTION WIDTH 15.6 % (11.5-15.2)
[2016-12-07 15:57] LABS: ANION GAP 14 mEq/L (8-16); CALCIUM 9.3 mg/dL (8.5-10.4); CARBON DIOXIDE 21 mEq/l (22-31); CHLORIDE 101 mEq/L (97-110); CREATININE 0.8 mg/dL (0.6-1.0); GLOMERULAR FILTRATION RATE > 60; GLUCOSE 129 mg/dL (70-100); POTASSIUM 4.5 mEq/L (3.5-5.2); SODIUM 136 mEq/L (134-144)
[2016-12-07 16:08] LABS: TROPONIN I < 0.012 ng/mL (0-0.034)
[2016-12-07 16:09] LABS: COLOR PALE YELLOW; LEUKOCYTE ESTERASE,URINE NEGATIVE (NEGATIVE); NITRITE,URINE NEGATIVE (NEGATIVE)
[2016-12-07 16:10] LABS: MUCUS TRACE /lpf (NONE-1+)
[2016-12-07 16:11] LABS: RBC,URINE NONE SEEN /hpf (0-3)
[2016-12-07 17:36] VITALS: BP 114/54; TEMP 98.4; O2SAT 92
== END 2016-12-07 17:39 | disposition home or self-care (01) ==
DX: R53.1 Weakness (principal); E11.9 Type 2 diabetes mellitus without complications; Z87.891 Personal history of nicotine dependence; Z95.0 Presence of cardiac pacemaker